=== PATIENT | male | born 1985 | race Caucasian/White ===

== ENCOUNTER 2020-11-11 16:48 | Emergency (ER) | payer BC ==
[~2020-11-11] VITALS: Ht 177.8 cm; Wt 83.9 kg
[~2020-11-11 16:48] MED LIST: PERCOCET 325 MG1 TA2 PO; ZOFRAN ODT4 MG SL
[2020-11-11] MEDS ORDERED: SEPTDS PO (18:52)
[2020-11-11] MEDS ORDERED: CEPHALEXIN500 M1 PO (18:52)
== END 2020-11-11 19:01 | disposition home or self-care (01) ==
LOC: ED 16:48
DX: S01.511A Laceration without foreign body of lip, initial encounter (principal); Z88.6 Allergy status to analgesic agent; Z88.8 Allergy status to other drugs, medicaments and biological substances; W50.1XXA Accidental kick by another person, initial encounter; Y93.89 Activity, other specified; Y92.89 Other specified places as the place of occurrence of the external cause; Y99.8 Other external cause status